=== PATIENT | male | born 1940 | race Two or more races ===

== ENCOUNTER 2022-10-05 00:32 | Emergency (ER) | payer MEDICARE, OTHER ==
[~2022-10-05] VITALS: Ht 172.7 cm; Wt 90.7 kg
[2022-10-05] MEDS ORDERED: NEBI5TAB8 PO (00:46)
[2022-10-05] MEDS ORDERED: LOSA25TA27 PO (00:46)
[2022-10-05] MEDS ORDERED: CLONIDINE HCL 0.2 MG TABLET PO ONE (01:00)
[2022-10-05] MEDS ORDERED: CLONIDINE HCL 0.2 MG TABLET ONE (01:01)
[2022-10-05 02:01] LABS: HEMATOCRIT 40.4 % (36.7-47.1); MEAN CORPUSCULAR HEMOGLOBIN 31.9 uug (23.8-33.4); MEAN CORPUSCULAR VOLUME 94.3 fL (73.0-96.2); PLATELET COUNT (AUTO) 159 K/uL (152-348)
[2022-10-05 02:04] LABS: CARBON DIOXIDE 25 mmol/L (21-32); CHLORIDE 107 mmol/L (98-107); GLUCOSE 154 mg/dL (74-106); POTASSIUM 3.8 mmol/L (3.5-5.1); UREA NITROGEN, BLOOD 23 mg/dL (7-18)
[2022-10-05] MEDS ORDERED: FUROSEMIDE 40 MG/4 ML VIAL IV ONE (02:30)
[2022-10-05] MEDS ORDERED: CHOLECALCIFEROL 1,000 UNIT TABLET PO SCH (02:30)
[2022-10-05] MEDS ORDERED: FUROSEMIDE 40 MG/4 ML VIAL ONE (02:37)
[2022-10-05] MEDS ORDERED: MAGNESIUM SULFATE/D5W 100 ML ONE ×2 (02:38→02:53)
[2022-10-05] MEDS ORDERED: CHOLECALCIFEROL 1,000 UNIT TABLET ONE (02:39)
[2022-10-05] MEDS: MAGNESIUM SULFATE/D5W 100 ML IV SCH ×2 (02:56→03:39)
[2022-10-05] MEDS ORDERED: CLON0.1T PO (03:44)
[2022-10-05 04:15] VITALS: BP 142/79
== END 2022-10-05 04:15 | disposition home or self-care (01) ==
LOC: ER 00:39
DX: I11.0 Hypertensive heart disease with heart failure (principal); I50.9 Heart failure, unspecified; I48.91 Unspecified atrial fibrillation; Z95.0 Presence of cardiac pacemaker; R94.31 Abnormal electrocardiogram [ECG] [EKG]; Z79.899 Other long term (current) drug therapy; E83.51 Hypocalcemia
CPT/HCPCS: 99291; 96365; 96375; 80048; 83880; 83735; 85025; 84484; 36415; 93005; 71045; J1940; J3475 ×2; A4663

== ENCOUNTER 2025-07-17 16:32 | Inpatient (IN) | payer MEDICARE, OTHER ==
[~2025-07-17] VITALS: Ht 175.3 cm; Wt 74.5 kg
[2025-07-17 16:32] VITALS: BP 159/75
[~2025-07-17 16:32] MED LIST: CLON0.1T PO; LOSA25TA27 PO; NEBI5TAB8 PO
[2025-07-17] MEDS: IV NORMAL SALINE 500 ML BAG IV ONE (16:45)
[2025-07-17 17:11] LABS: PLATELET COUNT (AUTO) 170 K/uL (152-348); RED BLOOD CELL COUNT(AUTO) 3.58 MIL/uL (4.06-5.63); RED CELL DISTRIBUTION WIDTH 15.9 % (12.1-16.2); WHITE BLOOD COUNT (AUTO) 3.1 K/uL (3.6-10.2)
[2025-07-17 17:19] LABS: ASPARTATE AMINOTRANSFERASE 14 U/L (15-37); CREATININE 0.9 mg/dL (0.6-1.3); SODIUM SERUM 148 mmol/L (136-145); TOTAL PROTEIN, SERUM 6.0 g/dL (6.4-8.2); UREA NITROGEN, BLOOD 17 mg/dL (7-18)
[2025-07-17] MEDS ORDERED: ONDANSETRON 4 MG/2 ML VIAL IV PRN (17:30)
[2025-07-17] MEDS ORDERED: DEXTROSE 50% 50 ML DISP.SYRIN IV PRN (17:30)
[2025-07-17] MEDS ORDERED: ACETAMINOPHEN 325 MG TABLET PO PRN (17:30)
[2025-07-17] MEDS: BLOOD SUGAR DIAGNOSTIC 1 EACH STRIP VI SCH (21:34)
[2025-07-17 21:38] VITALS: BP 168/70; TEMP 98.2; O2SAT 94
[2025-07-18 00:25] VITALS: BP 157/59; TEMP 98.5; O2SAT 98
[2025-07-18 04:32] VITALS: BP 153/71; TEMP 97.8; O2SAT 97
[2025-07-18 06:35] LABS: PLATELET COUNT (AUTO) 166 K/uL (152-348); RED BLOOD CELL COUNT(AUTO) 3.59 MIL/uL (4.06-5.63); RED CELL DISTRIBUTION WIDTH 16.1 % (12.1-16.2); WHITE BLOOD COUNT (AUTO) 3.1 K/uL (3.6-10.2)
[2025-07-18 07:01] LABS: ASPARTATE AMINOTRANSFERASE 13 U/L (15-37); CREATININE 0.8 mg/dL (0.6-1.3); SODIUM SERUM 144 mmol/L (136-145); TOTAL PROTEIN, SERUM 6.1 g/dL (6.4-8.2); UREA NITROGEN, BLOOD 14 mg/dL (7-18)
[2025-07-18 08:00] VITALS: BP 125/77; TEMP 97.7; O2SAT 96
[2025-07-18] MEDS: DOCUSATE SODIUM 100 MG CAPSULE PO SCH (08:20)
[2025-07-18] MEDS: HEPARIN SODIUM,PORCINE 5,000 UNITS/ML VIAL SQ SCH (08:22)
[2025-07-18] MEDS ORDERED: ACET325T53 PO (10:41)
[2025-07-18] MEDS ORDERED: AMIO200T5 PO (10:41)
[2025-07-18] MEDS ORDERED: DEXT1DRO6 EACHEYE (10:43)
[2025-07-18] MEDS ORDERED: ATOR20TA PO (10:45)
[2025-07-18] MEDS ORDERED: ASPI81TA31 PO (10:45)
[2025-07-18] MEDS ORDERED: CARV12.52 PO (10:46)
[2025-07-18] MEDS ORDERED: CRAN450T9 PO (10:46)
[2025-07-18] MEDS ORDERED: DOCU100C36 PO (10:47)
[2025-07-18] MEDS ORDERED: DILT-2 PO (10:47)
[2025-07-18] MEDS ORDERED: DOXA2TAB2 PO (10:48)
[2025-07-18] MEDS ORDERED: APIX2.5T PO (10:49)
[2025-07-18] MEDS ORDERED: BISA10SU61 RC (10:49)
[2025-07-18] MEDS ORDERED: ESCI-9 PO (10:50)
[2025-07-18] MEDS ORDERED: FAMO-108 PO (10:50)
[2025-07-18] MEDS ORDERED: FINA5TAB11 PO (10:51)
[2025-07-18] MEDS ORDERED: HYDR50TA68 PO (10:52)
[2025-07-18] MEDS ORDERED: HYDR-501 PO (10:53)
[2025-07-18] MEDS ORDERED: INSU100I40 SQ (10:54)
[2025-07-18] MEDS ORDERED: MELA3CAP2 PO (10:55)
[2025-07-18] MEDS ORDERED: INSU100V39 SQ (10:55)
[2025-07-18] MEDS ORDERED: INSU3INS6 SQ (10:55)
[2025-07-18] MEDS ORDERED: POLY17PO4 PO (10:56)
[2025-07-18] MEDS ORDERED: MAGN400O6 PO (10:56)
[2025-07-18] MEDS ORDERED: MULT-1188 PO (10:57)
[2025-07-18] MEDS ORDERED: QUET25TA36 PO (10:59)
[2025-07-18] MEDS ORDERED: QUET50TA PO (11:00)
[2025-07-18] MEDS ORDERED: SENN8.6T19 PO (11:00)
[2025-07-18] MEDS ORDERED: VALP250S3 PO (11:01)
[2025-07-18] MEDS ORDERED: TIMO5DRO18 EACHEYE (11:01)
[2025-07-18] MEDS ORDERED: VALS160T29 PO (11:02)
[2025-07-18] MEDS: POTASSIUM CHLORIDE 20 MEQ TAB.PRT.SR PO ONE (11:53)
[2025-07-18 11:58] VITALS: BP 146/59; TEMP 98.2; O2SAT 96
[2025-07-18] MEDS: INSULIN REGULAR, HUMAN 1000 UNIT/10 ML VIAL SQ PRN (12:13)
[2025-07-18 16:00] VITALS: BP 163/60; TEMP 98.1; O2SAT 95
[2025-07-18 19:50] VITALS: BP 158/59; TEMP 99; O2SAT 97
[2025-07-19 05:29] VITALS: BP 139/68; TEMP 97.5; O2SAT 93
[2025-07-19] MEDS: BACITRACIN/POLYMYXIN B OINT 15 GM TUBE TOP SCH (10:30)
[2025-07-19] MEDS ORDERED: BISACODYL 10 MG SUPP.RECT RC PRN (11:00)
[2025-07-19] MEDS: CARVEDILOL 12.5 MG TABLET PO SCH ×2 (11:00→12:30)
[2025-07-19] MEDS ORDERED: MAGNESIUM HYDROXIDE 30 ML LIQUID UDC PO PRN (11:00)
[2025-07-19] MEDS: MORPHINE SULFATE 2 MG/1 ML DISP.SYRIN IVP PRN (14:15)
[2025-07-19] MEDS: INSULIN GLARGINE,HUM 300 UNITS/3 ML CARTRIDGE SQ SCH (16:48)
[2025-07-19] MEDS: VALPROIC ACID 250 MG/5 ML LIQUID UDC PO SCH (16:48)
[2025-07-19] MEDS ORDERED: DOCUSATE SODIUM 100 MG CAPSULE PO SCH (17:00)
[2025-07-19] MEDS: QUETIAPINE FUMARATE 25 MG TABLET PO SCH (17:17)
[2025-07-19] MEDS: TIMOLOL MALEATE 0.5% OPHT DROP 5 ML BOTTLE EACHEYE SCH (21:00)
[2025-07-19] MEDS: APIXABAN 2.5 MG TABLET PO SCH (21:00)
[2025-07-19] MEDS ORDERED: QUETIAPINE FUMARATE 25 MG TABLET PO SCH (21:00)
[2025-07-19] MEDS: ATORVASTATIN 40 MG TABLET PO SCH (21:00)
[2025-07-19 21:45] VITALS: BP 170/80; TEMP 98; O2SAT 96
[2025-07-19] MEDS: VALSARTAN 160 MG TABLET PO SCH (22:06)
[2025-07-19] MEDS: DOXAZOSIN 2 MG TABLET PO SCH (22:07)
[2025-07-20 06:41] VITALS: BP 158/78; TEMP 97.8; O2SAT 97
[2025-07-20 06:54] LABS: PLATELET COUNT (AUTO) 178 K/uL (152-348); RED BLOOD CELL COUNT(AUTO) 3.78 MIL/uL (4.06-5.63); RED CELL DISTRIBUTION WIDTH 16.0 % (12.1-16.2); WHITE BLOOD COUNT (AUTO) 3.4 K/uL (3.6-10.2)
[2025-07-20 07:11] LABS: CREATININE 0.9 mg/dL (0.6-1.3); SODIUM SERUM 144 mmol/L (136-145); UREA NITROGEN, BLOOD 18 mg/dL (7-18)
[2025-07-20] MEDS: DILTIAZEM HCL CD 120 MG CAP.SR.24H PO SCH (09:00)
[2025-07-20] MEDS: FAMOTIDINE 20 MG TABLET PO SCH (09:00)
[2025-07-20] MEDS: AMIODARONE HCL 200 MG TABLET PO SCH (09:00)
[2025-07-20] MEDS: FINASTERIDE 5 MG TABLET PO SCH (09:00)
[2025-07-20] MEDS: ASPIRIN 81 MG TAB.CHEW PO SCH (09:00)
[2025-07-20] MEDS: ESCITALOPRAM OXALATE 10 MG TABLET PO SCH (09:00)
[2025-07-20] MEDS: QUETIAPINE FUMARATE 25 MG TABLET PO SCH (09:19)
[2025-07-20] MEDS ORDERED: HYDROXYZINE PAMOATE 25 MG CAPSULE PO PRN (09:45)
[2025-07-20 10:37] VITALS: BP 128/65; TEMP 98.2; O2SAT 95
[2025-07-20] MEDS ORDERED: MELATONIN 3 MG TABLET PO SCH (21:00)
== END 2025-07-20 15:30 | DRG 641 ==
LOC: ER 16:32 → TELE3 20:21 → MEDSURG3 07-18 10:20
PROVIDERS: ADMIT Internal Medicine; ATTEND Internal Medicine
DX: R62.7 Adult failure to thrive (principal); I69.351 Hemiplegia and hemiparesis following cerebral infarction affecting right dominant side; F02.83 Dementia in other diseases classified elsewhere, unspecified severity, with mood disturbance; F02.811 Dementia in other diseases classified elsewhere, unspecified severity, with agitation; R53.1 Weakness; E86.0 Dehydration; Z68.25 Body mass index [BMI] 25.0-25.9, adult; Z95.810 Presence of automatic (implantable) cardiac defibrillator; G30.9 Alzheimer's disease, unspecified; S50.812A Abrasion of left forearm, initial encounter; X58.XXXA Exposure to other specified factors, initial encounter; Y92.129 Unspecified place in nursing home as the place of occurrence of the external cause; E11.9 Type 2 diabetes mellitus without complications; E78.5 Hyperlipidemia, unspecified; I25.10 Atherosclerotic heart disease of native coronary artery without angina pectoris; I11.0 Hypertensive heart disease with heart failure; I48.91 Unspecified atrial fibrillation; I50.9 Heart failure, unspecified; N40.0 Benign prostatic hyperplasia without lower urinary tract symptoms; Z85.828 Personal history of other malignant neoplasm of skin; Z60.3 Acculturation difficulty; Z79.899 Other long term (current) drug therapy; D64.9 Anemia, unspecified; Z79.01 Long term (current) use of anticoagulants; Z79.4 Long term (current) use of insulin; D72.819 Decreased white blood cell count, unspecified
CPT/HCPCS: 36415; 70450; 71045; 83735; 84100; 84443; 84484; 85025; 85730; 86850; 86900; 86901; A4606; A4663; A6209; G0378; J0360; J1644; J1815; J2270; J7040